=== PATIENT | male | born 1960 | race Caucasian/White ===

== ENCOUNTER 2017-11-12 13:58 | Outpatient (CLI) | payer BC ==
--- NOTE | 2017-11-12 16:36 | MRI ---
BRAIN AND INTERNAL AUDITORY CANAL: History: Dizziness. Comparison: None. Technique: Brain and IAC MRI performed. Multisequential, multiplanar imaging performed. FINDINGS: Calvarium has a normal T1 marrow signal intensity. Midline brain parenchymal structures are unremarka ble. There are T2 and FLAIR white matter hyperintensities which may be due to chronic small vessel ischemi c change. The brain volume is somewhat less than expected for patient's age. Cortical marcelino white apolonia er differentiation is preserved. Ventricles and sulci are patent and symmetric. Central arterial flow voids are maintained. Absent restricted diffusion. No pathologic enhancement of the brain parenchyma. Adequate aeration of the sinuses and mastoid air cells. IMPRESSION: 1. Chronic small vessel ischemic changes of the white matter. 2. Brain volume, less than expected for patient's age. 3. Absent restricted diffusion. No acute infarct. 4. No abnormal enhancement in either inner ear or 7th/8th cranial nerve complex. POS: [facility]
== END 2017-11-12 13:59 | disposition home or self-care (01) ==
LOC: SCSMRI 13:58
PROVIDERS: ATTEND Psychiatry & Neurology Neurology
DX: R42 Dizziness and giddiness (principal); I67.89 Other cerebrovascular disease
CPT/HCPCS: 70553

== ENCOUNTER 2018-07-29 14:19 | Inpatient (IN) | payer BC ==
[2018-07-29] MEDS ORDERED: ISOVUE-370 76%-LOCM 1 ML ONE (15:06)
[2018-07-29] MEDS ORDERED: hydrALAZINE 20 MG/ML VIAL ONE (15:16)
[2018-07-29 15:23] LABS: #Basophils 0.1 thou/uL (0.0-0.2); #Eosinphils 0.1 thou/uL (0.0-0.7); #Lymphocytes 1.4 thou/uL (1.20-3.40); #Monocytes 0.6 thou/uL (0.11-0.59); #Neutrophils 5.5 thou/uL (1.40-6.50); %Basophils 0.8 % (0.0-1.0); %Lymphocytes 18.3 % (21.0-51.0); %Neutrophils 71.9 % (42.0-75.0); Hemoglobin 14.3 g/dL (14.0-18.0); Mean Platelet Volume 6.6 fL (7.4-10.4); Platelet Count 278 thou/uL (130-400); RBC Distribution Width 12.1 % (11.5-14.5); Red Blood Cell (RBC) Count 4.48 mill/uL (4.70-6.10); White Blood Cell (WBC) Count 7.6 thou/uL (4.8-10.8)
[2018-07-29 15:26] LABS: PTT 35.5 SEC (22.9-36.1); Prothrombin Time 13.7 SEC (12.0-14.7)
--- NOTE | 2018-07-29 15:36 | PDOC.FPRHP ---
- History of Present Illness Chief Complaint: R sided tingling History of Present Illness: This is a 57yo M with pmh of HTN presenting for a 2.5 day hx of R sided tingling and numbness. Pt reports it includes his R face, arm, side, and LE. No associated weakness. Pt sister reported a difficult to understand voicemail but otherwise no changes in speech. No visual changes. No transforming factors. Pt has never had a CVA/stroke in the past Pt has been seen in past by Neuro (Dr. Berger) for light headedness and reports having had an MRI and lab tests only positive for a vitamin B12 deficiency. He since has reported good compliance with a B12 and folate deficiency. 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) PSHx: unspecified eye surgery FHx: brain aneurism (brother, at 65yo) Social: Active smoker 35+ pack years, has also used dip tobacco, Former EtOH misuse (up to 12 drinks/day, last drink October), denies drugs - Review of Systems General: denies: fever/chills, weight/appetite/sleep changes Eyes: denies: eye pain, vision changes ENT: denies: nasal congestion, rhinorrhea Respiratory: denies: cough, shortness of breath Cardiovascular: denies: chest pain, palpitation Gastrointestinal: denies: nausea, vomiting Skin: denies: rashes, lesions Musculoskeletal: denies: pain, tenderness Neurological: reports: numbness, other (paresthesia per HPI). denies: syncope, seizure, weakness Psychological: denies: anxiety, depression - Vital signs BP: [180/76] HR: [72] RR: [18] Tmax: [97.5] Pox: [99]% on [RA] Wt: [84kg] - Physical Exam Constitutional: NAD, awake, alert and oriented HEENT: normocephalic and atraumatic, EOMI, conjunctiva clear, grossly normal hearing, normal nasal mucosa, MMM Neck: supple, trachea midline Chest: no-tender to palpation Heart: RRR, normal S1/S2 Lungs: CTAB, no respiratory distress Abdomen: soft, non-tender Musculoskeletal: normal structure, normal tone -Neurological: Arango R sided paresthesia and decreased sensation to light touch, otherwise no focal neurological deficits, otherwise CN2-12 intact, no deficits in strength ( biceps, quadratus, UE flexors) Skin: no rash/lesions, good turgor Heme/Lymphatic: no unusual bruising or bleeding, no purpura Psychiatric: normal mood and affect, intact recent and remote memory FMR H&P: Results - Labs Result Diagrams: 07/29/18 15:10 07/30/18 05:01 Lab results: WBC 7.6 thou/uL (4.8-10.8) 07/29/18 15:10 Hgb 14.3 g/dL (14.0-18.0) 07/29/18 15:10 Hct 43.4 % (42.0-52.0) 07/29/18 15:10 MCV 97.0 fL (78.0-98.0) 07/29/18 15:10 Plt Count 278 thou/uL (130-400) 07/29/18 15:10 Neutrophils % 71.9 % (42.0-75.0) 07/29/18 15:10 FMR H&P: A/P - Problem List (1) Ischemic stroke Current Visit: Yes Status: Acute Code(s): I63.9 - CEREBRAL INFARCTION, UNSPECIFIED (2) Hyponatremia Current Visit: Yes Status: Acute Code(s): E87.1 - HYPO-OSMOLALITY AND HYPONATREMIA (3) Hypertension Current Visit: Yes Status: Acute Code(s): I10 - ESSENTIAL (PRIMARY) HYPERTENSION (4) B12 deficiency Current Visit: Yes Status: Acute Code(s): E53.8 - DEFICIENCY OF OTHER SPECIFIED B GROUP VITAMINS - Plan 57yo M with pmh of HTN and significant family hx of CVA with radiographic evidence of thalamic stroke Ischemic Stroke A- CT brain shows tiny lacunar infact of L thalamus of indeterminate age as well as remote lacunar infact of R thalamus. Pt is well past deadline for tPa therapy. s/p ASA 325 x1. P- CTA head/neck pending -MRI brain -Echo -fasting lipids in AM -continue ASA 325 daily -prophylactic lovenox Hyponatremia A- other than cc pt is asymptomatic. Sx likely not caused my Na of 129. Will treat conservatively P- 1L NS -recheck BMP in AM HTN A- pt was in htn urgency in ED and is s/p hydralazine, pt is past 48hr window for permissive HTN P- Will restart lisinopril/hctz home dose -PRN hydralazine -monitor vitals Hx of b12 deficiency -continue home folate and b12 supplementation Tobacco use -encourage cessation -patch q24hr FMR H&P: Upper Level - Pertinent history 57M presents as transfer from [place] for right sided weakness, involving face, arms and legs. He state issue started at 0200 hour on 07/27/18. He had a sudden weakness on his right sided and slurred speech. This issue has not improved, so he came into ER. He has no stroke like episode in past, and denies issue with blood clots. He has elevated BP and b12/folate deficency, but otherwise has no other PMH. In ER, he was started with ASA 325 and hydrlazine as he was noted to have SBP over 180, and it is outside of 24 hour permissive HTN. - Pertinent findings Gen: Alert, oriented HEENT: Right sided facial droop, slurred speech. CV: RRR with no apparent m/g/r Resp: CTA bilaterally GI: Normoactive, non tender Ext: No swelling noted Neuro: CN II-XII grossly intact, except for facial droop. Decreased gross sensation on right face, arm and leg compared to left. 4/5 strength in upper/ lower extremeties on right compared to left. Slurred speech. CT without contrast: New age indeterminated thalmus stroke not seen on previous ct. Hyponatremia at 129 Na - Plan Date/Time: 07/29/18 1535 I, [Jn Albarado], have evaluated this patient and agree with findings/plan as outlined by technology internship resident. Pertinent changes/additions are listed here. 1. Ischemic stroke: New age indeterminate thalmus lesion on left side. In combination with history, likely had a stroke with continued symptom. Outside of TPA timeline. Plan for admission, further work up for causes of stroke. Stroke team consult. Dispo may include rehab placement. Will get HLD screening. MRI, CTA angio, cardiac echo will be done. 2. Hyponatremia: Borderline hyponatremia, and unlikely to be cause of symptom, as his is only right sided. At this time, will start with NS bolus, recheck lab tomorrow. 3. HTN urgency: Patient at increase risk of stroke due to BP. Outside of permissive HTN timeframe, so will restart home medication. Patient received hydralazine in ER which he has responded to. 4. Tobacco abuse: Plan for nicotine patch/cessation counseling. Modifiable risk factor for stroke. 5. Hx of b12/folate deficiency: At this time, normocytic, and not anemic. Will continue his home medication. Attending Addendum - Attending Addendum Date/Time: 07/30/181399 I personally evaluated the patient and discussed the management with Dr. Scanlon. I agree with the History, Examination, Assessment and Plan documented above with any addition or exceptions noted below.
[2018-07-29 15:40] LABS: ALT (SGPT) 12 U/L (8-55); AST (SGOT) 17 U/L (5-34); Albumin 4.3 g/dL (3.5-5.0); Alkaline Phosphatase 76 U/L (40-150); Anion Gap 8 mmol/L (10-20); BUN (Urea Nitrogen) 6 mg/dL (8.4-25.7); CK (CPK) 124 U/L (30-200); Calc. Creatinine Clearance 0 mL/min (70-130); Calcium 9.6 mg/dL (7.8-10.44); Carbon Dioxide 30 mmol/L (22-29); Chloride 95 mmol/L (98-107); Estimated GFR-MDRD Greater than 90; Globulin 3.1 g/dL (2.4-3.5); Glucose 91 mg/dL (70-105); Potassium 3.7 mmol/L (3.5-5.1); Protein, Total 7.4 g/dL (6.0-8.3); Sodium 129 mmol/L (136-145)
[2018-07-29 15:44] LABS: CKMB 3.9 ng/mL (0-6.6); Troponin I Less than 0.010 ng/mL (< 0.028)
[2018-07-29] MEDS ORDERED: Acetaminophen 325 MG TAB PO PRN (16:56)
[2018-07-29] MEDS ORDERED: Ondansetron PF 4 MG/2 ML Vial IVP PRN (16:56)
[2018-07-29] MEDS ORDERED: Ondansetron ODT 4 MG TAB SL PRN (16:56)
[2018-07-29] MEDS ORDERED: hydrALAZINE 20 MG/ML VIAL IM PRN (17:16)
[2018-07-29] MEDS ORDERED: Sodium Chloride 0.9% 1,000 ML IV SCH (17:16)
[2018-07-29 17:23] VITALS: BMI 26.3
--- NOTE | 2018-07-29 17:37 | CT ---
CT HEAD NONCONTRAST: CT ANGIOGRAM HEAD WITH IV CONTRAST AND 3D RECONSTRUCTIONS: CT ANGIOGRAM NECK WITH IV CONTRAST AND 3D RECONSTRUCTIONS: 07/29/2018 HISTORY: Stroke. The patient was transferred from an outside institution secondary to a motor deficit, a faci al droop, and slurred speech. COMPARISON: CT head obtained at [facility] on 07/29/2018 at 11:42 hours. FINDINGS: CT HEAD: Again noted are chronic small vessel ischemic changes and cerebral volume loss, similar to prior study. There is no evidence of an acute cortical infarction, hemorrhage, mass effect, or midli ne shift. The remote lacunar infarction in the right thalamus, as well as the indeterminate aged pun ctate lacunar infarction in the left thalamus, are again seen. There is no evidence of a hemorrhage, acute cortical infarction, mass effect, or midline shift. The ventricular system is normal in size, shape, and position. There has been no interval change from the prior exam. CT ANGIOGRAM HEAD: The right vertebral artery is small in caliber and terminates in PICA. The dista l left vertebral artery, as well as the bilateral artery and the bilateral posterior cerebral arterie s, do appear patent. Bilateral middle cerebral arteries are patent. There is no branch occlusion seen. The anterior cere bral arteries are patent bilaterally. There is slight irregularity involving the A1 segment of the l eft anterior cerebral artery but the anterior cerebral arteries are otherwise patent. No aneurysm is seen within the limitations of the technique of this exam. CT ANGIOGRAM NECK: There is a common origin of the innominate artery and left common carotid artery, which are patent. Prominent vascular calcifications are seen at the origin of the left subclavian a rtery, with vascular calcifications in the aortic arch. There is mild atherosclerotic plaque seen wi thin the innominate artery. Bilateral subclavian arteries, as well as bilateral common carotid arter ies, do appear patent. Dense vascular calcifications are seen at the carotid artery bifurcations and involving the carotid b ulbs bilaterally. These dense vascular calcifications do limit evaluation of the lumen, and there is also motion artifact limiting evaluation of the origin of the right internal carotid artery. Howeve r, there appears to be 50% or less maximal stenosis involving the bilateral internal carotid arteries , based on NASCET criteria. Bilateral external carotid arteries are patent. Dominant and patent left vertebral artery is present. The right vertebral artery terminates in the p osterior inferior cerebellar artery. There is minimal pleural and parenchymal scaring in each lung apex with associated small blebs presen t. Degenerative changes are seen in the cervical spine, greatest at the C5-C6 and C6-C7 levels. There a re periapical lucencies involving the posterior right maxillary and mandibular molars, as well as the left mandibular molars and maxillary molars, suggesting periapical abscesses, greater involving the right maxilla and mandible. IMPRESSION: 1. Punctate, indeterminate aged lacunar infarction left thalamus. 2. Stable remote lacunar infarction right thalamus. 3. Stable chronic small vessel ischemic changes and cerebral volume loss. 4. Mild atherosclerotic irregularity involving the A1 segment, right anterior cerebral artery. No f ocal stenosis or branch occlusion is otherwise seen involving the [place] or vertebrobasilar system. 5. Atherosclerotic calcifications involving the carotid artery bifurcations and the proximal interna l carotid artery, which limits evaluation of the lumens in these regions, as well as motion artifact at the level of the right carotid artery bifurcation, but there is 50% or less maximal stenosis invol ving the bilateral internal carotid arteries, based on NASCET criteria. 6. 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 The above findings were discussed with Dr. Swanson in the emergency department on 07/29/2018 at 1640 h ours. CODE CR POS: [facility]
[2018-07-29] MEDS ORDERED: Prevnar 13-Val Conj/PF 0.5 ML SYRINGE IM ONE (18:15)
[2018-07-29] MEDS: Nicotine 14 MG PATCH TD SCH (20:31)
--- NOTE | 2018-07-30 05:28 | PDOC.FM ---
- Subjective Subjective: Pt feeling well this morning. No sympom changes since yesterday. continued R sided tingling and decreased sensation No headache, no sob no cough, no cp no palpiatation, no nausea, no vomiting - Objective MAR Reviewed: Yes Vital Signs & Weight: Vital Signs (12 hours) Temp Pulse Resp BP BP Pulse Ox 07/30/18 03:38 97.9 F 66 18 170/78 H 99 07/30/18 00:37 97.5 F L 62 18 150/69 H 98 07/29/18 20:12 97.6 F 97 18 125/58 L 97 07/29/18 19:15 168/75 H Weight Weight 80.881 kg I&O: 07/28/18 07/29/18 07/30/18 06:59 06:59 06:59 Intake Total 1000 Output Total 0 Balance 1000 Result Diagrams: 07/29/18 15:10 07/30/18 05:01 <Ruiz Scanlon - Last Filed: 07/30/18 08:20> - Objective Vital Signs & Weight: Vital Signs (12 hours) Temp Pulse Pulse Pulse Resp BP BP 07/30/18 12:00 98 F 85 16 07/30/18 10:20 95 113 H 139/63 07/30/18 09:14 73 182/86 H 07/30/18 08:59 78 101 H 145/75 H 07/30/18 07:50 97.9 F 73 20 07/30/18 03:38 97.9 F 66 18 BP BP BP Pulse Ox 07/30/18 12:00 118/55 L 98 07/30/18 10:20 144/74 H 07/30/18 09:14 07/30/18 08:59 170/89 H 07/30/18 07:50 182/86 H 100 07/30/18 03:38 170/78 H 99 Weight Weight 80.881 kg I&O: 07/29/18 07/30/18 07/31/18 06:59 06:59 06:59 Intake Total 1000 Output Total 0 Balance 1000 Result Diagrams: 07/29/18 15:10 07/30/18 05:01 <William Greene - Last Filed: 07/30/18 12:53> Phys Exam - Physical Examination Constitutional: NAD HEENT: PERRLA, moist MMs, sclera anicteric Neck: no nodes, supple Respiratory: no wheezing, clear to auscultation bilateral Cardiovascular: RRR, no significant murmur Gastrointestinal: soft, non-tender Musculoskeletal: no edema, pulses present Neurological: moves all 4 limbs R sided (face, thorax/abdomen, UE, LE) decreased sensation Psychiatric: normal affect, A&O x 3 Skin: no rash, normal turgor <Ruiz Scanlon - Last Filed: 07/30/18 08:20> Dx/Plan (1) Ischemic stroke Code(s): I63.9 - CEREBRAL INFARCTION, UNSPECIFIED Status: Acute (2) Hyponatremia Code(s): E87.1 - HYPO-OSMOLALITY AND HYPONATREMIA Status: Acute (3) Hypertension Code(s): I10 - ESSENTIAL (PRIMARY) HYPERTENSION Status: Acute (4) B12 deficiency Code(s): E53.8 - DEFICIENCY OF OTHER SPECIFIED B GROUP VITAMINS Status: Acute - Plan Plan: 57yo M with pmh of HTN and significant family hx of CVA with radiographic evidence of thalamic stroke Ischemic Stroke A- CT brain shows tiny lacunar infact of L thalamus of indeterminate age as well as remote lacunar infact of R thalamus. Pt is well past deadline for tPa therapy. CTA confirms infarcts as well as showing A1 cerebral vessel atherosclerosis. P-MRI brain today -Echo -will consider starting atorvastatin and clopidogrel -continue ASA 325 daily -prophylactic lovenox Hyponatremia A- Na 129->134 after 1L NS. Other than cc pt is asymptomatic. P- will continue to monitor BMP HTN A- pt was in htn urgency in ED and is s/p hydralazine, pt is past 48hr window for permissive HTN P- increase home lisinopril/hctz to 20/12.5 -PRN hydralazine -monitor vitals Hx of b12 deficiency -continue home folate and b12 supplementation Tobacco use -encourage cessation -patch q24hr <Ruiz Sacnlon - Last Filed: 07/30/18 08:20> Attending Addendum - Attending Addendum Date/Time: 07/30/18 1252 I personally evaluated the patient and discussed the management with Dr. Scanlon. I agree with and repeated the History, Examination, Assessment and Plan documented above with any addition or exceptions noted below. Await neuro and MRI. Risk factor management. <William Greene - Last Filed: 07/30/18 12:53>
[2018-07-30 05:40] LABS: Anion Gap 11 mmol/L (10-20); BUN (Urea Nitrogen) 8 mg/dL (8.4-25.7); Calc. Creatinine Clearance 120 mL/min (70-130); Calcium 9.4 mg/dL (7.8-10.44); Carbon Dioxide 25 mmol/L (22-29); Chloride 102 mmol/L (98-107); Estimated GFR-MDRD Greater than 90; Glucose 86 mg/dL (70-105); Potassium 3.8 mmol/L (3.5-5.1); Sodium 134 mmol/L (136-145)
[2018-07-30 07:38] LABS: Cardiac Risk 3.2 (Less than 4.5)
[2018-07-30] MEDS ORDERED: B12 PO SCH (09:00)
[2018-07-30] MEDS ORDERED: Aspirin 325 MG TAB PO SCH (09:00)
[2018-07-30] MEDS ORDERED: Lisinopril/Hydrochlorothiazide 10 mg/12.5 mg Tablet PO SCH (09:00)
[2018-07-30] MEDS ORDERED: B6 PO SCH (09:00)
[2018-07-30] MEDS ORDERED: LEVOMEFOLATE CALCIUM PO SCH (09:00)
[2018-07-30] MEDS: Lisinopril/Hydrochlorothiazide 20 mg/12.5 mg Tablet PO SCH (09:14)
[2018-07-30] MEDS: Enoxaparin Sodium 40 MG/0.4 ML SYRINGE SC SCH (09:15)
--- NOTE | 2018-07-30 12:30 | CT ---
CT HEAD NONCONTRAST: CT ANGIOGRAM HEAD WITH IV CONTRAST AND 3D RECONSTRUCTIONS: CT ANGIOGRAM NECK WITH IV CONTRAST AND 3D RECONSTRUCTIONS: 07/29/2018 HISTORY: Stroke. The patient was transferred from an outside institution secondary to a motor deficit, a faci al droop, and slurred speech. COMPARISON: CT head obtained at [facility] on 07/29/2018 at 11:42 hours. FINDINGS: CT HEAD: Again noted are chronic small vessel ischemic changes and cerebral volume loss, similar to prior study. There is no evidence of an acute cortical infarction, hemorrhage, mass effect, or midli ne shift. The remote lacunar infarction in the right thalamus, as well as the indeterminate aged pun ctate lacunar infarction in the left thalamus, are again seen. Age indeterminate infarction is prese nt in the palma; there was artifact through this region on prior exam. There is no evidence of a hemor rhage, acute cortical infarction, mass effect, or midline shift. The ventricular system is normal in size, shape, and position. There has been no interval change from the prior exam. CT ANGIOGRAM HEAD: The right vertebral artery is small in caliber and terminates in PICA. The dista l left vertebral artery, as well as the bilateral artery and the bilateral posterior cerebral arterie s, do appear patent. Bilateral middle cerebral arteries are patent. There is no branch occlusion seen. The anterior cere bral arteries are patent bilaterally. There is slight irregularity involving the A1 segment of the l eft anterior cerebral artery but the anterior cerebral arteries are otherwise patent. No aneurysm is seen within the limitations of the technique of this exam. CT ANGIOGRAM NECK: There is a common origin of the innominate artery and left common carotid artery, which are patent. Prominent vascular calcifications are seen at the origin of the left subclavian a rtery, with vascular calcifications in the aortic arch. There is mild atherosclerotic plaque seen wi thin the innominate artery. Bilateral subclavian arteries, as well as bilateral common carotid arter ies, do appear patent. Dense vascular calcifications are seen at the carotid artery bifurcations and involving the carotid b ulbs bilaterally. These dense vascular calcifications do limit evaluation of the lumen, and there is also motion artifact limiting evaluation of the origin of the right internal carotid artery. Howeve r, there appears to be 50% or less maximal stenosis involving the bilateral internal carotid arteries , based on NASCET criteria. Bilateral external carotid arteries are patent. Dominant and patent left vertebral artery is present. The right vertebral artery terminates in the p osterior inferior cerebellar artery. There is minimal pleural and parenchymal scaring in each lung apex with associated small blebs presen t. Degenerative changes are seen in the cervical spine, greatest at the C5-C6 and C6-C7 levels. There a re periapical lucencies involving the posterior right maxillary and mandibular molars, as well as the left mandibular molars and maxillary molars, suggesting periapical abscesses, greater involving the right maxilla and mandible. IMPRESSION: 1. Punctate, indeterminate aged lacunar infarction left thalamus and in left palma. 2. Stable remote lacunar infarction right thalamus. 3. Stable chronic small vessel ischemic changes and cerebral volume loss. 4. Mild atherosclerotic irregularity involving the A1 segment, right anterior cerebral artery. No f ocal stenosis or branch occlusion is otherwise seen involving the [place] or vertebrobasilar system. 5. Atherosclerotic calcifications involving the carotid artery bifurcations and the proximal interna l carotid artery, which limits evaluation of the lumens in these regions, as well as motion artifact at the level of the right carotid artery bifurcation, but there is 50% or less maximal stenosis invol ving the bilateral internal carotid arteries, based on NASCET criteria. 6. 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 The above findings were discussed with Dr. Swanson in the emergency department on 07/29/2018 at 1640 h ours. CODE CR
--- NOTE | 2018-07-30 13:42 | MRI ---
NONCONTRAST MRI BRAIN: Date: 07/30/18 HISTORY: Motor deficits, facial droop, and slurred speech. Right-sided facial, arm, and leg tingling for 3 day s. COMPARISON: Noncontrasted CT head on 07/29/18. FINDINGS: There is a small, oval shaped focus of increased FLAIR and T2-weighted signal intensity in the left a spect of the palma which does demonstrate restricted diffusion and is consistent with a small acute la cunar infarction left aspect of the palma. There was artifact through this region on the prior noncont rasted CT scan examination, and although there is artifact on the prior CTA examination through the b ase of the brain, this area was likely present on that exam. No additional acute infarction is visual ized. There are scattered punctate and patchy areas of increased FLAIR and T2-weighted signal intensi ty in the periventricular and subcortical white matter, which are nonspecific but likely compatible w ith moderate chronic small vessel ischemic changes. The septum pellucidum and third ventricle are in the midline. There is mid cerebral and cerebellar vo lume loss. Appropriate flow-voids are demonstrated at the base of the brain. The right vertebral artery terminat es in PICA. Minimal mucosal thickening is seen in the bilateral ethmoidal air cells and right maxillary antrum. O rbits and remainder of the skull base have a normal MRI appearance. IMPRESSION: 1. Small acute lacunar infarction in the left palma. 2. Chronic small vessel ischemic changes and cerebral volume loss. The above findings were discussed with Dr. Aquino of the family medicine service on 07/30/18 at 1151 ho urs. CODE CR. POS: [facility]
[2018-07-30] MEDS: Nicotine 14 MG PATCH TD SCH (17:48)
[2018-07-30] MEDS ORDERED: Atorvastatin Calcium 40 MG TAB PO SCH (21:00)
--- NOTE | 2018-07-31 04:38 | CON ---
DATE OF CONSULTATION: 07/30/2018 CHIEF COMPLAINT: Right-sided tingling. HISTORY OF PRESENT ILLNESS: Patient himself gave his medical history. He had a slight dysarthria. He reports that is old and not new patient comes in with right-sided tingling and numbness, which has been present since last Sunday and saw me last Sunday approximately 5-day duration. No history of weakness or dizziness, loss of consciousness or vision problems. Patient never had similar symptoms in the past. He used to see Dr. Berger for lightheadedness and had lab workup which showed vitamin B12 deficiency and he has been doing well since November this year after that visit with Dr. Berger. 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 HOME MEDICATIONS: Lisinopril/hydrochlorothiazide combination 1 tablet per day. ALLERGIES: No known drug allergies. 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 They were able to correct the position of the eye but were not able to restore his vision. FAMILY HISTORY: Positive for brother who of brain aneurysm at 65, sister 58. She had surgery for brain tumor which was located near her right ear. His parents were both . Father at 85 from prostate cancer. Mother at 62. She too had cancer. Her daughter is 30 and has migraines. SOCIAL HISTORY: Active smoker, smoked for 35+ years and he also used to dip tobacco for 33 years. He used to use alcohol in the past. Last drink was in October. No drug use. Lives by self. 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 REVIEW OF SYSTEMS: Pulmonary: Normal. Cardiac: Normal. Genitourinary: Normal. Neurologic: Positive for numbness. Dermatologic: Normal. Hematologic : Normal. Ophthalmologic: Vision problems in the right eye. ENT: Normal. LABORATORY DATA: Includes white count 7.6, hemoglobin 14.3, hematocrit 43.4, platelets 278. Sodium 134, potassium 3.8, chloride 102, bicarbonate 25, BUN 8, anion gap 11, creatinine 0.76, glucose 86, calcium 9.4. Triglycerides 45, cholesterol 126, LDL 78, HDL 39. Coagulation: PT 13.7, INR 1.0, PTT 35.5. His other test reports, his MRI of the brain showed small oval-shaped acute lacunar infarct in the left palma. Chronic small vessel ischemic changes and cerebral volume loss and he also had a CT angiography of the head and neck area , which showed punctate due to lacunar infarct of the left thalamus. Stable remote lacunar of the right thalamus. Stable and chronic microvascular ischemic changes, mild atherosclerotic irregularity involving A1 segment. Right MOHIT, no focal stenosis or branch occlusion, atherosclerotic calcification throughout the carotid artery bifurcations 50% or less maximal stenosis involving bilateral ICA and no aneurysm noted. His echocardiogram is pending. PHYSICAL EXAMINATION: VITAL SIGNS: His blood pressure was 182/86, pulse 73, temperature 98. GENERAL APPEARANCE: Well-built, well-nourished gentleman who speaks with mild dysarthria, which she reports is baseline. CARDIOVASCULAR: S1, S2 heard, no murmurs. ABDOMEN: Soft, nontender. CHEST: Clear vesicular breathing. NEUROLOGICAL: Higher intellectual functions, normal orientation to time, place , person, and he had a cranial nerve exam. His pupils were 3-4 mm, reactive to light. He has slight numbness of the right side of the face. Extraocular movements were normal and hearing to finger rub is normal. Tongue midline, no atrophy noted. Normal elevation of palate. Motor: Bulk normal, tone normal, strength is 5/5 throughout in upper and lower extremities in iliopsoas, hamstrings, quadriceps, ankle dorsiflexion, plantar flexion, deltoid, biceps, triceps, wrist extension/flexion, finger extension and flexion. Deep tendon reflexes were 1+ throughout and sensory examination. He had slight numbness in the right side of the face, arm, and leg, mild difficulty with proprioception on the right side. Cerebellar normal finger-to- nose, [id number]. IMPRESSION: Patient is a 57-year-old man with right face, arm, leg weakness and corresponding infarct in the pontine area and his risk factors for stroke are smoking and hypertension. Clinical examination and history are most consistent with small vessel ischemic event involving the palma and he also has evidence of other vascular changes as well, which need to be followed carefully. RECOMMENDATIONS: 1. Agree with aspirin for stroke prophylaxis. 2. He will need to see a neurologist once he is discharged from the hospital for followup and repeat imaging particularly following on the carotid with consult Vascular Surgery. If there are any concerns as far as carotid arteries or concerns and I also reviewed the echocardiogram report which shows ejection fraction of about 65% and no specific thrombus was noted. Please call Neurology if you have any further questions. MTDD
--- NOTE | 2018-07-31 05:59 | PDOC.FM ---
- Subjective Subjective: Pt feels well today. Reports improvement of numbness in hand, foot, and face. Reports feeling strong enough to go home and care for himself No cp no palpitations, no sob no cough, no new numbness/tingling/weakness. - Objective MAR Reviewed: Yes Vital Signs & Weight: Vital Signs (12 hours) Temp Pulse Resp BP Pulse Ox 07/31/18 04:00 97.9 F 72 18 137/68 95 07/31/18 00:00 98.2 F 72 18 136/64 95 07/30/18 20:00 97.8 F 84 19 124/61 95 Weight Weight 80.881 kg I&O: 07/29/18 07/30/18 07/31/18 06:59 06:59 06:59 Intake Total 1000 600 Output Total 0 Balance 1000 600 Result Diagrams: 07/29/18 15:10 07/31/18 06:33 <Ruiz Scanlon - Last Filed: 07/31/18 07:46> - Objective Vital Signs & Weight: Vital Signs (12 hours) Temp Pulse Resp BP Pulse Ox 07/31/18 11:24 98.4 F 86 16 129/65 97 07/31/18 09:29 72 07/31/18 07:37 98.5 F 72 16 154/74 H 97 07/31/18 04:00 97.9 F 72 18 137/68 95 Weight Weight 80.881 kg I&O: 07/30/18 07/31/18 08/01/18 06:59 06:59 06:59 Intake Total 1000 600 Output Total 0 Balance 1000 600 Result Diagrams: 07/29/18 15:10 07/31/18 06:33 <William Greene - Last Filed: 07/31/18 14:56> Phys Exam - Physical Examination Constitutional: NAD HEENT: PERRLA, moist MMs, sclera anicteric Neck: no JVD, supple Respiratory: no wheezing, clear to auscultation bilateral Cardiovascular: RRR, no significant murmur Gastrointestinal: soft, non-tender Musculoskeletal: no edema, pulses present Neurological: moves all 4 limbs decreased sensation on baer R side. Improved from yesterday Psychiatric: normal affect, A&O x 3 Skin: no rash, normal turgor <Ruiz Scanlon - Last Filed: 07/31/18 07:46> Dx/Plan (1) Ischemic stroke Code(s): I63.9 - CEREBRAL INFARCTION, UNSPECIFIED Status: Acute (2) Hyponatremia Code(s): E87.1 - HYPO-OSMOLALITY AND HYPONATREMIA Status: Acute (3) Hypertension Code(s): I10 - ESSENTIAL (PRIMARY) HYPERTENSION Status: Acute (4) B12 deficiency Code(s): E53.8 - DEFICIENCY OF OTHER SPECIFIED B GROUP VITAMINS Status: Acute - Plan Plan: 57yo M with pmh of HTN and significant family hx of CVA with radiographic evidence of thalamic and pontine stroke Ischemic Stroke A- CT brain shows tiny lacunar infact of L thalamus of indeterminate age as well as remote lacunar infact of R thalamus. CTA confirms infarcts as well as showing A1 cerebral vessel atherosclerosis. MRI showing acute small lacunar stroke in L palma. Echo reads EF 65% with no thrombi noted. Neuro has been consulted and recommends f/u with neuro as well as plans for repeat imaging for further eval of carotids with possible vascular surgery consult P-continue atorvastatin -continue ASA 81 daily -prophylactic lovenox -control HTN risk factor -probable discharge today Hyponatremia - Na 129 on admission. Now 134 pt is asymptomatic. HTN A- pt was in htn urgency in ED and is s/p hydralazine, pt is past 48hr window for permissive HTN. BP has improved since then. Will need to f/u outpt. P- continue home lisinopril/hctz to 20/12.5 -PRN hydralazine -monitor vitals Hx of b12 deficiency - aware Tobacco use -encourage cessation -patch q24hr <Ruiz Scanlon - Last Filed: 07/31/18 07:46> Attending Addendum - Attending Addendum Date/Time: 07/31/18 5814 I personally evaluated the patient and discussed the management with Dr. Scanlon. I agree with and repeated the History, Examination, Assessment and Plan documented above with any addition or exceptions noted below. <William Greene - Last Filed: 07/31/18 14:56>
[2018-07-31 07:11] LABS: Sodium 134 mmol/L (136-145)
[2018-07-31] MEDS ORDERED: Aspirin 81 mg Enteric Coated Tablet PO SCH (09:00)
[2018-07-31] MEDS: Enoxaparin Sodium 40 MG/0.4 ML SYRINGE SC SCH (09:28)
[2018-07-31] MEDS: Lisinopril/Hydrochlorothiazide 20 mg/12.5 mg Tablet PO SCH (09:29)
[2018-07-31 11:25] VITALS: BP 129/65; TEMP 98.4
--- NOTE | 2018-08-01 14:36 | DIS-2 ---
DATE OF ADMISSION: 07/29/2018 DATE OF DISCHARGE: 07/31/2018 RESIDENT: Ruiz Scanlon M.D. ADMITTING ATTENDING: Elio Lawrence M.D. DISCHARGE ATTENDING: William Greene M.D. CONSULTATIONS: Neurology, Dr. Sasha Mckeon. PROCEDURES: 1. 07/29/2018, CT angiography, impression, punctate indeterminate age lacunar infarction of the left thalamus and in the left palma, stable remote lacunar infarction in the right thalamus, stable chroni c small vessel ischemic changes and cerebral volume loss, mild atherosclerotic irregularity involving the A1 segment, right anterior cerebral artery, no focal stenosis or branch occlusion is otherwise s een involving the rincon of Fernández or vertebrobasilar system. Atherosclerotic calcifications involvi ng the carotid artery bifurcations and proximal internal carotid artery, which limits evaluation of t he lumens in these regions as well as motion infarcts in artifact at the level of right carotid arter y bifurcation, but there is 50% or less maximal stenosis involving the bilateral internal carotid art eries based on NASCET criteria. 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 2. On 07/30/2018, his brain MRI report, impression, small acute lacunar infarction in the left palma, chronic small vessel ischemic changes and cerebral volume loss. PRIMARY DIAGNOSIS: Ischemic stroke. SECONDARY DIAGNOSES: Hypertension and hyponatremia. DISCHARGE MEDICATIONS: 1. Aspirin 81 mg p.o. daily. 2. Atorvastatin 80 mg p.o. at bedtime. 3. Lisinopril/hydrochlorothiazide 20/12.5 one tab p.o. daily. DISCONTINUED MEDICATIONS: Lisinopril/hydrochlorothiazide 10/12.5 one tab p.o. daily. HISTORY OF PRESENT ILLNESS AND HOSPITAL COURSE: This is a 57-year-old male with past medical history of hypertension who presented with a 2-1/2-day history of right-sided decreased sensation and parest hesia on the face, arm, lower extremity and thorax and abdomen. The patient reported not being too c oncerned about the symptoms at first, though he presented to the ER after he had difficulty at work, climbing some stairs due to his foot numbness. The patient had no other focal neurological deficit. Denied changes in speech and hearing as well as vision. Though the patient has chronic right eye bl indness, CT from outside ER showed left lacunar infarct of indeterminate age. CT angiography at our hospital then confirmed infarct as listed above. MRI was performed, which showed infarct in the palma as well. Neurology was consulted. The patient was started on initial dose of aspirin 325, which wa s then changed to 81 mg p.o. daily as well as started on atorvastatin calcium as the patient had demo nstrated he could benefit from therapy after getting fasting lipid panel. Neurology recommended and agreed with the plan of prophylactic aspirin and statin as well as with recommendations for outpatien t Neurology followup and potential repeat imaging and cardiovascular outpatient followup for progress ion of carotid stenosis in the future. Additionally, the patient's hospital stay was complicated by hypertension. The patient reported being on lisinopril/hydrochlorothiazide, but did not know the dos e. Dosing was started at 10/12.5, that was later increased to 20/12.5, which showed greater control of blood pressure with last recorded being 129/65. Additionally, the patient was mildly hyponatremic with a sodium of 129 on admission. After 1 liter bolus of saline, sodium increased to 134. After t he patient was deemed safe for discharge and arrangements were made for outpatient physical therapy p er inpatient physical therapy's recommendations, the patient was discharged home. DISPOSITION: Stable. DISCHARGE INSTRUCTIONS: 1. Discharge Location: Home. 2. Diet: Heart healthy. 3. Activity: As tolerated with restrictions for heavy work for 1-2 weeks. 4. Followup: With Chelsi Corona M.D., in 7 days.
== END 2018-07-31 12:59 | disposition home or self-care (01) | DRG 65 ==
LOC: ERS 14:19 → 2SE 15:44 → OBSVTOIN 15:44 → 2SE 16:49
PROVIDERS: ADMIT Emergency Medicine; ATTEND Emergency Medicine
DX: I63.9 Cerebral infarction, unspecified (principal); E87.1 Hypo-osmolality and hyponatremia; G81.91 Hemiplegia, unspecified affecting right dominant side; I10 Essential (primary) hypertension; E53.8 Deficiency of other specified B group vitamins; H54.61 Unqualified visual loss, right eye, normal vision left eye; Z79.899 Other long term (current) drug therapy; F17.210 Nicotine dependence, cigarettes, uncomplicated; R29.810 Facial weakness; I16.0 Hypertensive urgency; R29.703 NIHSS score 3
CPT/HCPCS: 36415; 70496; 70498; 70551; 80048; 80061; 84295; 90471; 90670; 90686; 93005; 93306; 94760; 96374; G0008; G0009; G8978-GP-CJ; G8979-GP-CJ; G8980-GP-CJ; G8987-GO-CJ; G8988-GO-CJ; G8989-GO-CJ; G8996-GN-CI; G8997-GN-CI; J0360; J1650

== ENCOUNTER 2022-02-03 13:05 | Inpatient (IN) | payer BC ==
[2022-02-03] MEDS ORDERED: Acetaminophen 325 MG TAB PO PRN (15:16)
[2022-02-03] MEDS ORDERED: Acetaminophen/Codeine 30-300mg Tablet PO PRN (15:16)
[2022-02-03] MEDS ORDERED: Morphine 2 MG/ML VIAL SLOW IVP PRN (15:16)
[2022-02-03] MEDS ORDERED: Ondansetron PF 4 MG/2 ML Vial IVP PRN (15:16)
[2022-02-03] MEDS ORDERED: HYDROcodone/Acetaminophen 7.5/325 mg Tablet PO PRN (15:16)
[2022-02-03] MEDS ORDERED: traMADol HCl 50 MG TAB PO PRN (15:16)
[2022-02-03 15:39] LABS: #Basophils 0.1 thou/uL (0.0-0.2); #Eosinphils 0.1 thou/uL (0.0-0.7); #Lymphocytes 1.4 thou/uL (1.20-3.40); #Neutrophils 7.4 thou/uL (1.40-6.50); %Basophils 0.5 % (0.0-1.0); %Eosinophils 1.3 % (0.0-10.0); %Monocytes 9.7 % (0.0-10.0); %Neutrophils 74.6 % (42.0-75.0); Hemoglobin 12.3 g/dL (14.0-18.0); Mean Corpuscular HGB CONC 33.3 g/dL (32.0-36.0); Mean Corpuscular Hemoglobin 31.3 pg (27.0-31.0); Platelet Count 301 thou/uL (130-400); RBC Distribution Width 12.9 % (11.5-14.5); Red Blood Cell (RBC) Count 3.93 mill/uL (4.70-6.10); White Blood Cell (WBC) Count 9.9 thou/uL (4.8-10.8)
[2022-02-03 15:52] LABS: INR-International Normal Ratio 1.1
[2022-02-03 15:53] LABS: PTT 36.5 sec (22.9-36.1)
[2022-02-03 15:59] LABS: ALT (SGPT) 18 U/L (8-55); AST (SGOT) 20 U/L (5-34); Albumin 4.1 g/dL (3.4-4.8); Alkaline Phosphatase 120 U/L (40-110); Anion Gap 13 mmol/L (10-20); BUN (Urea Nitrogen) 6 mg/dL (8.4-25.7); Bilirubin, Total 0.9 mg/dL (0.2-1.2); Calc. Creatinine Clearance 0 mL/min (70-130); Calcium 9.2 mg/dL (7.8-10.44); Carbon Dioxide 24 mmol/L (23-31); Chloride 95 mmol/L (98-107); Glucose 91 mg/dL (80-115); Potassium 3.8 mmol/L (3.5-5.1); Protein, Total 7.1 g/dL (5.8-8.1); Sodium 128 mmol/L (136-145)
[2022-02-03 17:16] VITALS: BMI 30.9
[2022-02-03 17:27] LABS: SARS-CoV-2 NAA Rapid Test Not Detected (NotDetected)
[2022-02-03] MEDS ORDERED: hydrALAZINE 20 MG/ML VIAL SLOW IVP PRN (20:18)
[2022-02-03] MEDS: Atorvastatin Calcium 40 MG TAB PO SCH (22:08)
[2022-02-04] MEDS ORDERED: Thrombin 5000 UNITS/5 ML VIAL ONE (06:57)
[2022-02-04] MEDS ORDERED: Ondansetron ODT 4 MG TAB ONE (07:47)
[2022-02-04] MEDS ORDERED: Fentanyl 250 MCG/5 ML VIAL ONE (07:53)
[2022-02-04] MEDS ORDERED: ceFAZolin (BATCH) 2 GM/100 ML BAG ONE (08:15)
[2022-02-04] MEDS ORDERED: Glycopyrrolate 0.2 MG/ML 5 ML SYRINGE ONE (08:31)
[2022-02-04] MEDS ORDERED: Albuterol Sulfate HFA (OR ONLY) ONE (08:31)
[2022-02-04] MEDS ORDERED: Lidocaine 1% PF 5 ML VIAL ONE (08:31)
[2022-02-04] MEDS ORDERED: PROPOFOL 200 MG/20 ML VIAL ONE (08:31)
[2022-02-04] MEDS ORDERED: Rocuronium Bromide 10 MG/ML (10ML VIAL) ONE (08:31)
[2022-02-04] MEDS ORDERED: Dexamethasone 20 MG/5 ML VIAL ONE (08:31)
[2022-02-04] MEDS ORDERED: Ondansetron PF 4 MG/2 ML Vial ONE (08:31)
[2022-02-04] MEDS: Escitalopram Oxalate 20 mg Tablet PO SCH (08:46)
[2022-02-04] MEDS: Multivit, Therapeutic 1 TAB PO SCH (08:46)
[2022-02-04] MEDS: Lisinopril/Hydrochlorothiazide 20 mg/12.5 mg Tablet PO SCH ×2 (08:46→11:50)
[2022-02-04] MEDS ORDERED: HYDROmorphone 2 MG/ML VIAL SLOW IVP PRN (09:59)
[2022-02-04] MEDS ORDERED: Promethazine HCl 25 MG/ML VIAL IM PRN (09:59)
[2022-02-04] MEDS ORDERED: PACU-Morphine 4MG/ML VIAL SLOW IVP PRN (09:59)
[2022-02-04] MEDS ORDERED: Promethazine HCl 25 MG/ML VIAL IVPB PRN (09:59)
[2022-02-04] MEDS ORDERED: Morphine Sulfate 2 MG/ML SYRINGE SLOW IVP PRN (09:59)
[2022-02-04] MEDS ORDERED: Ondansetron HCl/PF 4 MG/2 ML Vial IVP PRN (09:59)
[2022-02-04] MEDS ORDERED: tiZANidine HCl 4 MG TAB PO PRN (10:19)
[2022-02-04] MEDS: Sodium Chloride 0.9% 1,000 ML IV SCH ×2 (11:40→21:11)
[2022-02-04] MEDS: ceFAZolin (BATCH) 2 GM in Premix Bag 1 BAG IVPB SCH ×2 (11:51→23:20)
[2022-02-04] MEDS: Atorvastatin Calcium 40 MG TAB PO SCH (21:10)
[2022-02-05 08:06] LABS: Anion Gap 16 mmol/L (10-20); BUN (Urea Nitrogen) 10 mg/dL (8.4-25.7); Calc. Creatinine Clearance 133 mL/min (70-130); Calcium 9.2 mg/dL (7.8-10.44); Carbon Dioxide 20 mmol/L (23-31); Chloride 98 mmol/L (98-107); Glucose 130 mg/dL (80-115); Potassium 4.4 mmol/L (3.5-5.1); Sodium 130 mmol/L (136-145)
[2022-02-05] MEDS: Multivit, Therapeutic 1 TAB PO SCH (08:42)
[2022-02-05] MEDS: ceFAZolin (BATCH) 2 GM in Premix Bag 1 BAG IVPB SCH ×3 (08:42→23:40)
[2022-02-05] MEDS: Lisinopril/Hydrochlorothiazide 20 mg/12.5 mg Tablet PO SCH (08:42)
[2022-02-05] MEDS: Escitalopram Oxalate 20 mg Tablet PO SCH (08:42)
[2022-02-05] MEDS: Sodium Chloride 0.9% 1,000 ML IV SCH (08:43)
[2022-02-05] MEDS ORDERED: Dexamethasone 4 mg/ml Vial SLOW IVP SCH (13:15)
[2022-02-05] MEDS: Atorvastatin Calcium 40 MG TAB PO SCH (20:35)
[2022-02-05] MEDS: Dexamethasone 4 MG TAB PO SCH (20:36)
[2022-02-06] MEDS: Dexamethasone 4 MG TAB PO SCH ×4 (02:40→21:26)
[2022-02-06] MEDS: Sodium Chloride 0.9% 1,000 ML IV SCH ×2 (02:48→14:26)
[2022-02-06 08:52] LABS: #Lymphocytes 0.8 thou/uL (1.20-3.40); #Monocytes 0.6 thou/uL (0.11-0.59); #Neutrophils 16.8 thou/uL (1.40-6.50); %Eosinophils 0.2 % (0.0-10.0); %Lymphocytes 4.6 % (21.0-51.0); %Monocytes 3.1 % (0.0-10.0); %Neutrophils 92.1 % (42.0-75.0); Hemoglobin 12.2 g/dL (14.0-18.0); Mean Corpuscular HGB CONC 33.5 g/dL (32.0-36.0); Mean Corpuscular Hemoglobin 32.6 pg (27.0-31.0); Mean Corpuscular Volume 97.1 fL (78.0-98.0); Platelet Count 283 thou/uL (130-400); RBC Distribution Width 12.9 % (11.5-14.5); Red Blood Cell (RBC) Count 3.76 mill/uL (4.70-6.10); White Blood Cell (WBC) Count 18.2 thou/uL (4.8-10.8)
[2022-02-06 09:19] LABS: Anion Gap 14 mmol/L (10-20); BUN (Urea Nitrogen) 12 mg/dL (8.4-25.7); Calc. Creatinine Clearance 144 mL/min (70-130); Calcium 9.3 mg/dL (7.8-10.44); Carbon Dioxide 25 mmol/L (23-31); Chloride 97 mmol/L (98-107); Glucose 141 mg/dL (80-115); Potassium 3.9 mmol/L (3.5-5.1); Sodium 132 mmol/L (136-145)
[2022-02-06] MEDS: ceFAZolin (BATCH) 2 GM in Premix Bag 1 BAG IVPB SCH (09:25)
[2022-02-06] MEDS: Lisinopril/Hydrochlorothiazide 20 mg/12.5 mg Tablet PO SCH (09:26)
[2022-02-06] MEDS: Escitalopram Oxalate 20 mg Tablet PO SCH (09:26)
[2022-02-06] MEDS: Multivit, Therapeutic 1 TAB PO SCH (09:26)
[2022-02-06] MEDS: Atorvastatin Calcium 40 MG TAB PO SCH (21:26)
[2022-02-07] MEDS: Dexamethasone 4 MG TAB PO SCH ×3 (02:38→14:16)
[2022-02-07] MEDS: Sodium Chloride 0.9% 1,000 ML IV SCH ×2 (02:39→19:30)
[2022-02-07] MEDS: Lisinopril/Hydrochlorothiazide 20 mg/12.5 mg Tablet PO SCH (08:57)
[2022-02-07] MEDS: Multivit, Therapeutic 1 TAB PO SCH (08:57)
[2022-02-07] MEDS: Escitalopram Oxalate 20 mg Tablet PO SCH (08:58)
[2022-02-07] MEDS: Atorvastatin Calcium 40 MG TAB PO SCH (20:22)
[2022-02-07] MEDS: Dexamethasone 1 MG TAB PO SCH (20:22)
[2022-02-08] MEDS: Dexamethasone 1 MG TAB PO SCH ×3 (02:16→14:38)
[2022-02-08] MEDS: Lisinopril/Hydrochlorothiazide 20 mg/12.5 mg Tablet PO SCH (09:30)
[2022-02-08] MEDS: Escitalopram Oxalate 20 mg Tablet PO SCH (09:30)
[2022-02-08] MEDS: Multivit, Therapeutic 1 TAB PO SCH (09:30)
[2022-02-08] MEDS: Sodium Chloride 0.9% 1,000 ML IV SCH (09:31)
[2022-02-08 17:24] VITALS: BP 174/79; TEMP 98.1
[2022-02-09] MEDS ORDERED: Dexamethasone 1 MG TAB PO SCH (20:00)
[2022-02-11] MEDS ORDERED: Dexamethasone 1 MG TAB PO SCH (20:00)
== END 2022-02-08 18:17 | DRG 471 ==
LOC: ERS 13:05 → SURG A 15:31
PROVIDERS: ADMIT Surgery; ATTEND Surgery
PROC: 0RG10A0 Fusion of Cervical Vertebral Joint with Interbody Fusion Device, Anterior Approach, Anterior Column, Open Approach (ICD-10-PCS; principal; 2022-02-04)
PROC: 0RB30ZZ Excision of Cervical Vertebral Disc, Open Approach (ICD-10-PCS; 2022-02-04)
PROC: 00NW0ZZ Release Cervical Spinal Cord, Open Approach (ICD-10-PCS; 2022-02-04)
PROC: 01N10ZZ Release Cervical Nerve, Open Approach (ICD-10-PCS; 2022-02-04)
DX: M48.02 Spinal stenosis, cervical region (principal); G95.19 Other vascular myelopathies; G82.50 Quadriplegia, unspecified; G99.2 Myelopathy in diseases classified elsewhere; Z20.822 Contact with and (suspected) exposure to COVID-19; I10 Essential (primary) hypertension; F17.210 Nicotine dependence, cigarettes, uncomplicated; Z86.73 Personal history of transient ischemic attack (TIA), and cerebral infarction without residual deficits; Z79.899 Other long term (current) drug therapy; Z79.82 Long term (current) use of aspirin
CPT/HCPCS: 36415; 76000; 80048; 80053; 85025; 85610; 85730; 93970; 99285; C1713; C1776; J0690; J1100; J2405; J2704; J3010; J8540; Q0162; U0002

== ENCOUNTER 2023-07-11 08:40 | Outpatient (CLI) | payer BC | END 2023-07-11 08:41 | disposition home or self-care (01) | LOC: NM 08:40 | PROVIDERS: ATTEND Psychiatry & Neurology Neurology | DX: R26.81 Unsteadiness on feet (principal); G20.C Parkinsonism, unspecified | CPT/HCPCS: 78803; A9584 ==